=== PATIENT | male | born 1990 | race Caucasian/White ===

== ENCOUNTER 2022-01-21 01:07 | Emergency (ER) | payer SELFPAY ==
[~2022-01-21] VITALS: Ht 180.3 cm; Wt 63.5 kg
== END 2022-01-21 04:20 | disposition home or self-care (01) ==
LOC: ER 01:07
DX: Z00.00 Encounter for general adult medical examination without abnormal findings (principal)
CPT/HCPCS: 99283

== ENCOUNTER 2022-01-26 01:37 | Emergency (ER) | payer SELFPAY ==
[~2022-01-26] VITALS: Ht 180.3 cm; Wt 68.0 kg
== END 2022-01-26 01:55 | disposition home or self-care (01) ==
LOC: ER 01:37
DX: Z00.00 Encounter for general adult medical examination without abnormal findings (principal); M79.605 Pain in left leg; M79.604 Pain in right leg; Z59.00 Homelessness unspecified
CPT/HCPCS: 99283